=== PATIENT | male | born 1965 | race Caucasian/White ===

== ENCOUNTER 2017-01-28 15:13 | Inpatient (IN) | payer MEDICAID ==
[~2017-01-28] VITALS: Ht 157.5 cm; Wt 78.0 kg
[2017-01-28 16:31] VITALS: BP 154/77
[2017-01-28 17:34] LABS: BASOPHILS # (AUTO) 0.1 K/uL (0.00-0.22); BASOPHILS % (AUTO) 1.5 % (0.0-2.0); EOSINOPHILS # (AUTO) 0.1 K/uL (0-0.4); HEMATOCRIT 39.8 % (36-52); HEMOGLOBIN 12.9 g/dL (12.0-18.0); LYMPHOCYTES # (AUTO) 1.6 K/uL (2.0-11.5); LYMPHOCYTES % (AUTO) 16.6 % (20.5-51.1); MEAN CORPUSCULAR HEMOGLOBIN 27 pg (27-31); MEAN CORPUSCULAR HGB CONC 32 g/dL (33-37); MEAN CORPUSCULAR VOLUME 83 fL (80-94); MONOCYTES # (AUTO) 0.6 K/uL (0.8-1.0); MONOCYTES % (AUTO) 6.6 % (1.7-9.3); NEUTROPHILS # (AUTO) 7.3 K/uL (1.8-7.7); NEUTROPHILS % (AUTO) 74.3 % (42.2-75.2); PLATELET COUNT (AUTO) 286 K/uL (140-450); RED BLOOD CELL COUNT(AUTO) 4.78 MIL/uL (4.20-6.10); RED CELL DISTRIBUTION WIDTH 12.3 % (11.6-13.7); WHITE BLOOD COUNT (AUTO) 9.7 K/uL (4.8-10.8)
[2017-01-28 17:59] LABS: ANION GAP 9.8 (8-16); CARBON DIOXIDE 29.6 mmol/L (21-32); CREATININE 0.9 mg/dL (0.7-1.3); POTASSIUM 4.4 mmol/L (3.5-5.1); TOTAL BILIRUBIN 0.4 mg/dL (0.0-1.0)
[2017-01-28 18:00] LABS: ALBUMIN 3.1 g/dL (3.4-5.0)
[2017-01-28] MEDS ORDERED: NACL 0.9% 1,000 ML IV ONE ×2 (21:15→22:30)
--- NOTE | 2017-01-28 22:00 | NUR ---
Pt taken to bed 3.
--- NOTE | 2017-01-28 22:08 | NUR ---
Patient being evaluated by Dr. Merchant at bedside.
--- NOTE | 2017-01-28 22:10 | NUR ---
51y/m presents to er c/o high blood sugar. pmh dm, htn. nka. per pt his blood sugar was high, on arrival to ed blood sugar is 270. pt has head ache that radiates to upper back 5/10. pt denies n/v/d, sob. skin intact, vss, pt in bed w/ family at bedside. er md aware of pt status.
[2017-01-28 22:29] LABS: APPEARANCE,URINE SL CLOUDY (CLEAR); BILIRUBIN,URINE 1+ (NEGATIVE); BLOOD, URINE 2+ (NEGATIVE); COLOR,URINE YELLOW (YELLOW); LEUKOCYTE ESTERASE ,URINE NEGATIVE (NEGATIVE); NITRITE, URINE NEGATIVE (NEGATIVE); UGLUCOSE 3+ (NEGATIVE)
[2017-01-28 22:32] LABS: BARBITURATE, URINE NEG. ng/ml (NEG <=200); BENZODIAZEPINE, URINE NEG. ng/mL (NEG <=200); CANNABINOID, URINE NEG. ng/mL (NEG <=50); COCAINE, URINE NEG. ng/mL (NEG <=300); OPIATE, URINE NEG. ng/mL (NEG <=2000); PHENCYCLIDINE SCREEN,URINE NEG. ng/mL (NEG <=25)
[2017-01-28 22:39] LABS: RBC,URINE 0-5 (RARE) /HPF (0-5); WBC,URINE 0-5 (RARE) /HPF (0-5)
[2017-01-28 23:53] LABS: ANION GAP 10.6 (8-16); CARBON DIOXIDE 24.4 mmol/L (21-32); CREATININE 0.8 mg/dL (0.7-1.3)
[2017-01-29] MEDS ORDERED: DEXTROSE 50% 50 ML SYR IVP PRN (00:05)
--- NOTE | 2017-01-29 00:10 | NUR ---
pt in bed sleeping, will continue to monitor, no new needs at this time.
[2017-01-29] MEDS ORDERED: ONDANSETRON 4 MG/2 ML VIAL IVP PRN (00:40)
[2017-01-29] MEDS ORDERED: HYDROcodone/APAP 7.5/325 MG 1 TAB PO PRN (00:40)
[2017-01-29] MEDS ORDERED: MAG SULF 2000 MG/WATER PREMIX 50 ML IV SCH (00:45)
--- NOTE | 2017-01-29 01:05 | NUR ---
Patient will be admitted to care of dr moss. Admited to tele. Will go to room 119b. Belongings list completed. Report to loretta.
--- NOTE | 2017-01-29 01:08 | NUR ---
RECEIVED PATIENT FROM ER. PATIENT IS CHILEAN SPEAKING. 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 PATIENT A&OX4. PATIENT STATES HEADACHE, WILL MEDICATE ORDERED. PATIENT SKIN IS INTACT. PATIENT IS AMBULATORY. PATIENT IV SITE PATENT AND INTACT. PATIENT ORIENTED TO UNIT. NO SIGNS OR SYMPTOMS OF ACUTE DISTRESS NOTED. CALL LIGHT WITHIN REACH. WILL CONTINUE TO MONITOR.
[2017-01-29 01:16] LABS: AMYLASE 41 U/L (25-115); CHOL/HDL RATIO 2.8 (1-4.5); HDL CHOLESTEROL 57 mg/dL (40-60); LDL (CALC) 79 mg/dL (60-100); LIPASE 185 U/L (73-393); MAGNESIUM 1.7 mg/dL (1.8-2.4); PHOSPHORUS 2.6 mg/dL (2.5-4.9); TRIGLYCERIDES 133 mg/dL (30-150)
[2017-01-29] MEDS: NACL 0.9% 1,000 ML IV SCH ×4 (01:31→20:35)
[2017-01-29] MEDS: ACETAMINOPHEN 325 MG TAB PO PRN ×2 (01:57→10:49)
[2017-01-29] MEDS ORDERED: METF10002 PO (03:13)
[2017-01-29] MEDS ORDERED: LISI-420 PO (03:13)
[2017-01-29 04:00] VITALS: BP 139/79
--- NOTE | 2017-01-29 05:05 | NUR ---
PATIENT UP OUT OF BED FOR RESTROOM. PATIENT DENIES PAIN. NO SIGNS OR SYMPTOMS OF ACUTE DISTRESS NOTED. CALL LIGHT WITHIN REACH. WILL CONTINUE TO MONITOR.
[2017-01-29] MEDS: INSULIN LISPRO SLIDING SCALE 100 UNITS/ML VIAL SUBQ PRN ×4 (06:14→20:33)
[2017-01-29 06:42] LABS: BASOPHILS # (AUTO) 0.2 K/uL (0.00-0.22); BASOPHILS % (AUTO) 1.5 % (0.0-2.0); EOSINOPHILS # (AUTO) 0.1 K/uL (0-0.4); EOSINOPHILS % (AUTO) 1.2 % (0.0-4.0); HEMATOCRIT 35.4 % (36-52); HEMOGLOBIN 11.8 g/dL (12.0-18.0); LYMPHOCYTES # (AUTO) 2.3 K/uL (2.0-11.5); LYMPHOCYTES % (AUTO) 22.4 % (20.5-51.1); MEAN CORPUSCULAR HEMOGLOBIN 28 pg (27-31); MEAN CORPUSCULAR HGB CONC 33 g/dL (33-37); MEAN CORPUSCULAR VOLUME 83 fL (80-94); MONOCYTES # (AUTO) 0.8 K/uL (0.8-1.0); MONOCYTES % (AUTO) 8.1 % (1.7-9.3); NEUTROPHILS # (AUTO) 6.9 K/uL (1.8-7.7); NEUTROPHILS % (AUTO) 66.8 % (42.2-75.2); PLATELET COUNT (AUTO) 249 K/uL (140-450); RED BLOOD CELL COUNT(AUTO) 4.26 MIL/uL (4.20-6.10); WHITE BLOOD COUNT (AUTO) 10.3 K/uL (4.8-10.8)
[2017-01-29 07:01] LABS: PROTHROMBIN TIME 9.9 secs (10.8-13.4)
[2017-01-29 07:16] LABS: ANION GAP 10.3 (8-16); CARBON DIOXIDE 27.5 mmol/L (21-32); CREATININE 0.9 mg/dL (0.7-1.3); POTASSIUM 3.8 mmol/L (3.5-5.1)
[2017-01-29 07:17] LABS: MAGNESIUM 2.5 mg/dL (1.8-2.4); PHOSPHORUS 2.9 mg/dL (2.5-4.9)
--- NOTE | 2017-01-29 07:17 | NUR ---
ENDORSED PLAN OF CARE TO AM RN. PATIENT IN STABLE CONDITION.
--- NOTE | 2017-01-29 07:24 | NUR ---
REPORT RECEIVED FROM WAXER TENDER NURSE, PT SLEEPING QUIETLY IN NAD, RESP EVEN UNLABORED ON ROOM AIR, PT AROUSES EASILY TO VOICE, DENIES PAIN OR DISCOMFORT, PLAN OF CARE REVIEWED, BED LOCKED IN LOW POSITION, SIDE RAILS UP, CALL ROSENBERG WITHIN REACH, WILL CONTINUE TO MONITOR.
[2017-01-29] MEDS: BLOOD GLUCOSE MONITORING 1 DEV DEV FS SCH ×4 (07:30→20:13)
[2017-01-29 08:00] VITALS: BP 146/87
[2017-01-29] MEDS ORDERED: metFORMIN 500 MG TAB PO SCH ×3 (08:00→17:00)
[2017-01-29] MEDS: LISINOPRIL 20 MG TAB PO SCH (08:56)
[2017-01-29] MEDS: DOCUSATE SODIUM 100 MG GELCAP PO SCH ×2 (08:56→20:35)
--- NOTE | 2017-01-29 08:58 | NUR ---
PATIENT HAS BEEN SCREENED AND CATEGORIZED HIGH NUTRITION RISK. PATIENT WILL BE SEEN WITHIN 1-2 DAYS OF ADMISSION. 01/29/17-01/30/[address]
--- NOTE | 2017-01-29 08:59 | NUR ---
AM MEDS GIVEN, PT DYLLAN WELL, PT REPORTS SLIGHT BUI, WILL GIVEN TYLENOL PER PRN ORDER, PT'S NIECE VISITING AT BEDSIDE, TECH AT BEDSIDE FOR KIDNEY AND BILAT LE US.
[2017-01-29 12:00] VITALS: BP 146/80
--- NOTE | 2017-01-29 12:11 | NUR ---
BLOOD SUGAR 282, WILL GIVE INSULIN PER SLIDING SCALE, VITALS TAKEN, PT STATES BUI IS ONLY 1/10 NOW, DENIES ANY CHEST PAIN OR SOB, DENIES ANY IMMEDIATE NEEDS, IVF INFUSING WELL, SITE CLEAR, WILL CONTINUE TO MOTNIOR.
--- NOTE | 2017-01-29 12:38 | NUR ---
CM NOTE PER UNDERCOAT SPRAYER DESTIN, SHE SPOKE WITH SOMEONE FROM [facility]# [phone] (OPTION 1) WHO SAID THAT THEY DON'T HAVE A DIRECT NUMBER FOR THE INPATIENT DEPT BUT TO FAX REVIEWS TO [phone] AND THAT ONCE THEY RECEIVE, THEIR TIE MAKER WILL GIVE US A CALL. INITIAL REVIEW FAXED TO [facility] [phone] # [phone] (OPTION 1)
[2017-01-29] MEDS ORDERED: FLUTICASONE NASAL 50 MCG/ACTUATION 16 GM BTL NS SCH (14:00)
--- NOTE | 2017-01-29 15:18 | NUR ---
PT SITTING UP RESTING QUIETLY IN NAD, NEW IV BAG STARTED, IV SITE CLEAR WNL, PT VOICES NO PAIN OR DISCOMFORT, DENIES ANY IMMEDIATE NEEDS, PT REMAINS ON CAREER CENTER DIRECTOR, CALL ROSENBERG WITHIN REACH, SIDE RAILS UP, WILL CONTINUE TO MONITOR.
[2017-01-29 15:47] VITALS: BP 148/86
[2017-01-29] MEDS: APAP/BUTAL/CAFF 325/50/40 MG 1 TAB PO PRN (16:01)
[2017-01-29] MEDS: metFORMIN 850 MG TAB PO SCH (16:01)
--- NOTE | 2017-01-29 19:30 | NUR ---
REPORT GIVEN TO BOLA GRANGER, PT IN STABLE CONDITION.
--- NOTE | 2017-01-29 19:35 | NUR ---
RECEIVED REPORT FROM DAY RN, PATIENT RESTING IN BED, AWAKE ALERT ORIENTED X4, NO S/S OF DISTRESS NOTED, RESPIRATION EVEN AND UNLABORED, DENIES PAIN AT THIS TIME. IV PATENT AND INTACT, INFUSING NS AT 150ML/HR. PLAN OF CARE DISCUSSED, PATIENT VERBALIZED UNDERSTANDING, CALL LIGHT WITHIN REACH, SAFETY MEASURE ENSURED, WILL CONTINUE TO MONITOR.
--- NOTE | 2017-01-29 20:37 | NUR ---
DUE MEDICATION GIVEN, PATIENT TOLERATED WELL. NO S/S OF DISTRESS NOTED, WELL CONTINUE TO MONITOR.
--- NOTE | 2017-01-29 22:21 | NUR ---
PATIENT IS SLEEPING AT THIS TIME, RESPIRATION EVEN AND UNLABORED, CALL LIGHT WITHIN REACH, SAFETY MEASURE ENSURED, WILL CONTINUE TO MONITOR.
[2017-01-30] VITALS: BP 150/80
--- NOTE | 2017-01-30 00:22 | NUR ---
VITAL SIGNS STABLE, NO S/S OF DISTRESS NOTED, CALL LIGHT WITHIN REACH, SAFETY MEASURE ENSURED, WILL CONTINUE TO MONITOR.
--- NOTE | 2017-01-30 02:22 | NUR ---
PATIENT IS SLEEPING, RESPIRATION EVEN AND UNLABORED, CALL LIGHT WITHIN REACH, SAFETY MEASURE ENSURED, WILL CONTINUE TO MONITOR.
[2017-01-30] MEDS: NACL 0.9% 1,000 ML IV SCH ×4 (03:30→23:24)
--- NOTE | 2017-01-30 04:23 | NUR ---
NO CHANGE IN CONDITION, PATIENT IS SLEEPING, RESPIRATION EVEN AND UNLABORED, CALL LIGHT WITHIN REACH, SAFETY MEASURE ENSURED, WILL CONTINUE TO MONITOR.
--- NOTE | 2017-01-30 06:27 | NUR ---
PATIENT IS SLEEPING, NO S/S OF DISTRESS NOTED, RESPIRATION EVEN AND UNLABORED, CALL LIGHT WITHIN REACH, SAFETY MEASURE ENSURED, WILL CONTINUE TO MONITOR.
[2017-01-30] MEDS: BLOOD GLUCOSE MONITORING 1 DEV DEV FS SCH ×4 (06:33→21:07)
[2017-01-30] MEDS: INSULIN LISPRO SLIDING SCALE 100 UNITS/ML VIAL SUBQ PRN ×4 (06:34→21:13)
[2017-01-30 07:22] LABS: BASOPHILS # (AUTO) 0.2 K/uL (0.00-0.22); BASOPHILS % (AUTO) 1.5 % (0.0-2.0); EOSINOPHILS # (AUTO) 0.1 K/uL (0-0.4); EOSINOPHILS % (AUTO) 0.7 % (0.0-4.0); HEMATOCRIT 33.5 % (36-52); HEMOGLOBIN 11.5 g/dL (12.0-18.0); LYMPHOCYTES # (AUTO) 1.7 K/uL (2.0-11.5); LYMPHOCYTES % (AUTO) 15.5 % (20.5-51.1); MEAN CORPUSCULAR HEMOGLOBIN 28 pg (27-31); MEAN CORPUSCULAR HGB CONC 34 g/dL (33-37); MEAN CORPUSCULAR VOLUME 82 fL (80-94); MONOCYTES # (AUTO) 0.8 K/uL (0.8-1.0); MONOCYTES % (AUTO) 7.5 % (1.7-9.3); NEUTROPHILS # (AUTO) 8.4 K/uL (1.8-7.7); NEUTROPHILS % (AUTO) 74.8 % (42.2-75.2); PLATELET COUNT (AUTO) 237 K/uL (140-450); RED BLOOD CELL COUNT(AUTO) 4.09 MIL/uL (4.20-6.10); RED CELL DISTRIBUTION WIDTH 11.9 % (11.6-13.7); WHITE BLOOD COUNT (AUTO) 11.2 K/uL (4.8-10.8)
[2017-01-30 07:30] LABS: MAGNESIUM 1.5 mg/dL (1.8-2.4); PHOSPHORUS 2.6 mg/dL (2.5-4.9)
--- NOTE | 2017-01-30 07:35 | NUR ---
ENDORSED PLAN OF CARE TO DAY RN, PATIENT IS STABLE, NO S/S OF DISTRESS NOTED.
--- NOTE | 2017-01-30 07:36 | NUR ---
PT IS AWAKE, ORIENTED. INTRODUCED MYSELF AND UPDATE THE BOARD. PT IS KOSOVAN SPEAKING. M/S. IV ON R AC 20G NS AT 150ML INFUSING. V/S WITHIN NORMAL LIMITS. C/O BUI -03/27. REQUESTS TYLENOL. WILL ADMINISTER ALONG WITH MORNING MEDS. SKIN INTACT. TODAY'S LABS: NA 124 , WBC 11.2 AND MAG 1.5. ALL OTHER LABS UNREMARKABLE. WILL BE BACK WITH MORNING MEDS.
[2017-01-30 07:56] LABS: CARBON DIOXIDE 23.9 mmol/L (21-32); CREATININE 0.8 mg/dL (0.7-1.3); POTASSIUM 3.9 mmol/L (3.5-5.1)
[2017-01-30 08:00] VITALS: BP 141/79
[2017-01-30] MEDS: DOCUSATE SODIUM 100 MG GELCAP PO SCH ×2 (08:23→21:15)
[2017-01-30] MEDS: LISINOPRIL 20 MG TAB PO SCH (08:24)
[2017-01-30] MEDS: ACETAMINOPHEN 325 MG TAB PO PRN ×2 (08:24→21:20)
[2017-01-30] MEDS: metFORMIN 850 MG TAB PO SCH ×3 (08:24→16:59)
[2017-01-30] MEDS: FLUTICASONE NASAL 50 MCG/ACTUATION 16 GM BTL NS SCH (08:25)
--- NOTE | 2017-01-30 08:30 | NUR ---
ADMINISTERED MORNING MEDS ALONG WITH TYLENOL FOR BUI. PT TOLERATED WELL.
[2017-01-30] MEDS ORDERED: FUROSEMIDE 40 MG/4 ML VIAL IVP SCH (09:20)
--- NOTE | 2017-01-30 10:00 | NUR ---
PT RESTING COMFORTABLY. NO SIGNS OF DISTRESS. NO COMPLAINTS. WILL CONTINUE TO MONITOR PT.
--- NOTE | 2017-01-30 12:22 | NUR ---
01/30/17 RD INITIAL ASSESSMENT COMPLETED PLEASE REFER TO NUTRITION ASSESSMENT UNDER CARE ACTIVITY FOR ESTIMATED NUTRITIONAL NEEDS. RD RECOMMENDATIONS: 1- RECOMMEND CONTINUE 60G CCHO DIET. 2- PROVIDE PATIENT WITH EDUCATIONAL MATERIALS IN [place] 3- FOLLOW UP 3-5 DAYS; MODERATE RISK ARLEEN MCCLURE MBA, RD
[2017-01-30] MEDS ORDERED: MAG SULF 2000 MG/WATER PREMIX 50 ML IV ONE (12:45)
--- NOTE | 2017-01-30 13:10 | NUR ---
ADMINISTERED MAG RIDER ORDERED. PT MAG TODAY WAS 1.5. EDUCATED PT ABOUT MAG. PT VERBALIZED UNDERSTANDING. WILL CONTINUE TO MONITOR PT.
--- NOTE | 2017-01-30 15:05 | NUR ---
PT SLEEPING SOUNDLY. NO SIGNS OF DISTRESS. WILL CONTINUE TO MONITOR PT.
[2017-01-30 15:16] LABS: ANION GAP 10.5 (8-16); CARBON DIOXIDE 26.1 mmol/L (21-32); CREATININE 0.9 mg/dL (0.7-1.3); POTASSIUM 3.6 mmol/L (3.5-5.1)
[2017-01-30 16:00] VITALS: BP 142/59
[2017-01-30] MEDS ORDERED: SODIUM CHLORIDE 1 GM TAB PO SCH (18:00)
--- NOTE | 2017-01-30 18:00 | NUR ---
AWAKE AND ALERT NO SOB NOTED PATIENT WITH DINNER TRAY AT THSI TIME NUCLEAR STATION OPERATOR TO ATTEMPT INCENTIVE SPIROMETRY THERAPY AT A LATER TIME
--- NOTE | 2017-01-30 19:19 | NUR ---
ENDORSED CARE TO ELECTRONIC DEVELOPMENT TECHNICIAN RN AT BEDSIDE FOR CONTINUITY OF CARE. PATIENT IN STABLE CONDITION.
--- NOTE | 2017-01-30 19:25 | NUR ---
RECEIVED REPORT FROM DAY RN, PATIENT RESTING IN BED, AWAKE ALERT ORIENTED X4, NO S/S OF DISTRESS NOTED, RESPIRATION EVEN AND UNLABORED, DENIES PAIN AT THIS TIME, IV PATENT AND INTACT, INFUSING NS AT 150ML/HR. PLAN OF CARE DISCUSSED, PATIENT VERBALIZED UNDERSTANDING. CALL LIGHT WITHIN REACH, SAFETY MEASURE ENSURED, WILL CONTINUE TO MONITOR.
--- NOTE | 2017-01-30 21:35 | NUR ---
PATIENT ASKED FOR TYLENOL, UPON PAIN ASSESSMENT, PATIENT STATED 2./10 HEADACHE. TYLENOL ADMINISTERED ORDERED. WILL CONTINUE TO MONITOR.
--- NOTE | 2017-01-30 22:27 | NUR ---
PATIENT IS SLEEPING AT THIS TIME. NO S/S OF DISTRESS NOTED, RESPIRATION EVEN AND UNLABORED, CALL LIGHT WITHIN REACH, SAFETY MEASURE ENSURED, WILL CONTINUE TO MONITOR.
[2017-01-31] VITALS: BP 142/80
--- NOTE | 2017-01-31 00:10 | NUR ---
VITAL SIGNS STABLE, NO CHANGE IN CONDITION, RESPIRATION EVEN AND UNLABORED, CALL LIGHT WITHIN REACH, SAFETY MEASURE ENSURED, WILL CONTINUE TO MONITOR.
--- NOTE | 2017-01-31 02:17 | NUR ---
NO CHANGE IN CONDITION, PATIENT IS SLEEPING AT THIS TIME, RESPIRATION EVEN AND UNLABORED, CALL LIGHT WITHIN REACH, SAFETY MEASURE ENSURED, WILL CONTINUE TO MONITOR.
--- NOTE | 2017-01-31 04:22 | NUR ---
PATIENT IS SLEEPING AT THIS TIME, RESPIRATION EVEN AND UNLABORED, CALL LIGHT WITHIN REACH, SAFETY MEASURE ENSURED, WILL CONTINUE TO MONITOR.
--- NOTE | 2017-01-31 04:47 | NUR ---
PATIENT ASKED FOR TYLENOL, UPON PAIN ASSESSMENT, PATIENT STATED 2/10 HEADACHE. TYLENOL WILL BE ADMINISTERED ORDERED.
[2017-01-31] MEDS: ACETAMINOPHEN 325 MG TAB PO PRN (04:50)
[2017-01-31] MEDS: NACL 0.9% 1,000 ML IV SCH ×2 (05:07→12:37)
[2017-01-31] MEDS: BLOOD GLUCOSE MONITORING 1 DEV DEV FS SCH ×2 (06:43→11:30)
[2017-01-31] MEDS: INSULIN LISPRO SLIDING SCALE 100 UNITS/ML VIAL SUBQ PRN ×2 (06:44→12:46)
--- NOTE | 2017-01-31 07:20 | NUR ---
ENDORSED PLAN OF CARE TO DAY SHIFT NURSE. PATIENT IS IN STABLE CONDITION. NO S/S OF DISTRESS NOTED.
--- NOTE | 2017-01-31 07:21 | NUR ---
RECEIVED REPORT FROM NIGHTSHIFT RN AT BEDSIDE FOR CONTINUITY OF CARE. PATIENT RESTING IN BED, AWAKE ALERT ORIENTED X4, NO S/S OF DISTRESS NOTED, RESPIRATION EVEN AND UNLABORED, DENIES PAIN AT THIS TIME, IV PATENT AND INTACT, INFUSING NS AT 150ML/HR. CALL LIGHT WITHIN REACH, SAFETY MEASURE ENSURED, WILL CONTINUE TO MONITOR.
[2017-01-31 08:00] VITALS: BP 140/80
[2017-01-31] MEDS: FLUTICASONE NASAL 50 MCG/ACTUATION 16 GM BTL NS SCH (08:23)
[2017-01-31] MEDS: LISINOPRIL 20 MG TAB PO SCH (08:23)
[2017-01-31] MEDS: metFORMIN 850 MG TAB PO SCH ×2 (08:24→12:26)
[2017-01-31] MEDS: APAP/BUTAL/CAFF 325/50/40 MG 1 TAB PO PRN ×2 (08:24→14:28)
[2017-01-31] MEDS: DOCUSATE SODIUM 100 MG GELCAP PO SCH (08:29)
--- NOTE | 2017-01-31 08:29 | NUR ---
ADMINISTERED MORNING MEDS. PATIENT TOLERATED THEM WELL. HELD FILIPE, PATIENT HAD BMX2 THIS AM.
[2017-01-31 09:58] LABS: BASOPHILS # (AUTO) 0.2 K/uL (0.00-0.22); BASOPHILS % (AUTO) 1.7 % (0.0-2.0); EOSINOPHILS # (AUTO) 0.1 K/uL (0-0.4); HEMATOCRIT 35.3 % (36-52); HEMOGLOBIN 11.7 g/dL (12.0-18.0); LYMPHOCYTES # (AUTO) 0.8 K/uL (2.0-11.5); MEAN CORPUSCULAR HEMOGLOBIN 27 pg (27-31); MEAN CORPUSCULAR HGB CONC 33 g/dL (33-37); MEAN CORPUSCULAR VOLUME 83 fL (80-94); MONOCYTES # (AUTO) 0.6 K/uL (0.8-1.0); NEUTROPHILS # (AUTO) 7.5 K/uL (1.8-7.7); NEUTROPHILS % (AUTO) 82.3 % (42.2-75.2); PLATELET COUNT (AUTO) 254 K/uL (140-450); RED BLOOD CELL COUNT(AUTO) 4.26 MIL/uL (4.20-6.10); RED CELL DISTRIBUTION WIDTH 11.6 % (11.6-13.7); WHITE BLOOD COUNT (AUTO) 9.3 K/uL (4.8-10.8)
[2017-01-31 10:10] LABS: ANION GAP 11.7 (8-16); CARBON DIOXIDE 25.6 mmol/L (21-32); CREATININE 0.9 mg/dL (0.7-1.3); POTASSIUM 3.3 mmol/L (3.5-5.1)
[2017-01-31] MEDS ORDERED: POTASSIUM CHLORIDE 10 MEQ TABER PO SCH (10:55)
--- NOTE | 2017-01-31 11:50 | NUR ---
PT SLEEPING. NO SIGNS OF DISTRESS. WILL CONTINUE TO MONITOR PT.
--- NOTE | 2017-01-31 12:56 | NUR ---
DR MERAZ WITH PT. PER , SHE WILL PUT ORDERS FOR D/C. PER PT, FAMILY LIVES VERY CLOSE, WHENEVER THE PAPER WORK IS READY, HE CAN CALL FOR RIDE.
--- NOTE | 2017-01-31 13:00 | NUR ---
WENT OVER THE DISCHARGE INFORMATION WITH PT. PT VERBALIZED UNDERSTANDING. REMOVED IV, CANNULA INTACT. NO BLEEDING NOTED. REMOVED ARM ID BAND. EXPLAINED TO PT TO CALL FAMILY FOR HIS RIDE. GET DRESSED, GATHER HIS BELONGINGS AND LET US KNOW WHEN RIDE ARRIVES. WE WILL WHEEL HIM OUT IN A WHEELCHAIR TO THE CAR. Addendum: 01/31/17 at 1511 by Yanni Mclain RN WRONG TIME. PLEASE DISREGARD.
[2017-01-31] MEDS ORDERED: [UNRECOGNIZED DRUG - CODE] PO (13:19)
--- NOTE | 2017-01-31 14:25 | NUR ---
PATIENT COMPLAINED OF HEADACHE. 2 OUT OF 10, INTERMITTENT. WILL MEDICATE AND WILL REASSESS.
--- NOTE | 2017-01-31 15:00 | NUR ---
WENT OVER THE DISCHARGE INFORMATION WITH PT. PT VERBALIZED UNDERSTANDING. REMOVED IV, CANNULA INTACT. NO BLEEDING NOTED. REMOVED ARM ID BAND. EXPLAINED TO PT TO CALL FAMILY FOR HIS RIDE. GET DRESSED, GATHER HIS BELONGINGS AND LET US KNOW WHEN RIDE ARRIVES. WE WILL WHEEL HIM OUT IN A WHEELCHAIR TO THE CAR.
--- NOTE | 2017-01-31 15:50 | NUR ---
PT'S FAMILY WAITING IN THE CAR IN FRONT OF THE HOSPITAL . WHEELED PT OUT WITH ALL PERSONAL BELONGINGS. PT IN STABLE CONDITION.
== END 2017-01-31 15:50 | disposition home or self-care (01) | DRG 425 ==
LOC: MED 15:13 → MTU 01-29 00:01
PROVIDERS: ADMIT Family Medicine; ATTEND Family Medicine
DX: E87.1 Hypo-osmolality and hyponatremia (principal); N17.0 Acute kidney failure with tubular necrosis; G93.41 Metabolic encephalopathy; E44.0 Moderate protein-calorie malnutrition; E11.65 Type 2 diabetes mellitus with hyperglycemia; E83.42 Hypomagnesemia; E83.41 Hypermagnesemia; D68.59 Other primary thrombophilia; E87.8 Other disorders of electrolyte and fluid balance, not elsewhere classified; I10 Essential (primary) hypertension; F17.210 Nicotine dependence, cigarettes, uncomplicated; R31.9 Hematuria, unspecified; E66.9 Obesity, unspecified; J98.11 Atelectasis; Z79.84 Long term (current) use of oral hypoglycemic drugs; Z68.31 Body mass index [BMI] 31.0-31.9, adult
CPT/HCPCS: 36415; 70450; 71010; 76770; 80048; 80053; 80305; 81001; 82150; 82550; 82948; 83036; 83690; 83735; 83880; 83930; 83935; 84100; 84300; 84439; 84443; 84484; 85025; 85610; 85730; 87081; 87086; 93005; 93925; 93970; 96360; 96361; 99285; G0482; J3475; J7030; Q0092